=== PATIENT | female | born 1975 | race African-American/Black ===

== ENCOUNTER 2024-06-29 19:10 | Emergency (ER) | payer MEDICARE, MEDICAID ==
[~2024-06-29 19:10] MED LIST: APIX5TAB PO; COR12 PO; GLIP5TAB22 MT; KEPP500 PO; PROT40 MT; TRAZ-251 PO
[2024-06-29] MEDS ORDERED: DIPH25TA24 MT (20:22)
[2024-06-29] MEDS ORDERED: HYDR30OI12 TP (20:22)
[2024-06-29] MEDS ORDERED: P20 MT (20:22)
[2024-06-29] MEDS ORDERED: PERM60CR4 TP (20:22)
[2024-06-29 21:04] VITALS: BP 132/83; PULSE 72; RESP 18; TEMP 36.72516; O2SAT 99
== END 2024-06-29 21:07 | disposition home or self-care (01) ==
LOC: ER 19:10
DX: R21 Rash and other nonspecific skin eruption (principal); Z79.899 Other long term (current) drug therapy; Z79.84 Long term (current) use of oral hypoglycemic drugs; Z79.01 Long term (current) use of anticoagulants
CPT/HCPCS: 99283

== ENCOUNTER 2024-12-16 23:20 | Emergency (ER) | payer BC, MEDICAID ==
[~2024-12-16] VITALS: Ht 152.4 cm; Wt 110.0 kg
[~2024-12-16 23:20] MED LIST changes: +DIPH25TA24 MT; +HYDR30OI12 TP; +P20 MT; +PERM60CR4 TP
[2024-12-16 23:31] VITALS: O2SAT 99
[2024-12-16 23:34] VITALS: TEMP 37.2
[2024-12-17] MEDS ORDERED: AMOX1TAB16 MT (00:38)
[2024-12-17] MEDS ORDERED: CIPHCO LEFT EAR (00:38)
[2024-12-17] MEDS ORDERED: IBUP-2029 MT (00:38)
[2024-12-17] MEDS ORDERED: FLUT15.844 BOTHNSTRLS (00:38)
[2024-12-17] MEDS ORDERED: TOPUD PO (00:38)
[2024-12-17 00:43] VITALS: BP 162/104; PULSE 92; RESP 18; TEMP 98.9
[2024-12-17] MEDS: KETOROLAC 30MG/ML VIAL IM STA (00:43)
[2024-12-17] MEDS: ACETAMINOPHEN 325MG TABLET PO STA (00:43)
== END 2024-12-17 00:59 | disposition home or self-care (01) ==
LOC: ER 23:20
DX: H60.92 Unspecified otitis externa, left ear (principal); H66.92 Otitis media, unspecified, left ear; M19.90 Unspecified osteoarthritis, unspecified site; E11.9 Type 2 diabetes mellitus without complications; G40.909 Epilepsy, unspecified, not intractable, without status epilepticus; Z79.899 Other long term (current) drug therapy; J45.909 Unspecified asthma, uncomplicated; Z79.84 Long term (current) use of oral hypoglycemic drugs; Z79.01 Long term (current) use of anticoagulants
CPT/HCPCS: 99283; 81025; 96372; J1885